=== PATIENT | male | born 1990 | race Caucasian/White ===

== ENCOUNTER 2020-01-28 09:29 | Emergency (ER) | payer OTHER, SELFPAY ==
[2020-01-28 09:44] VITALS: BP 123/84; PULSE 76; RESP 16; TEMP 36.6; O2SAT 97
--- NOTE | 2020-01-28 10:25 | ED.BACK ---
HPI - Back Pain/Injury General Chief Complaint: Back Pain/Injury Stated Complaint: lower back pain Time Seen by Provider: 01/28/20 10:09 Source: patient and RN notes reviewed Mode of arrival: ambulatory Limitations: no limitations History of Present Illness HPI Narrative: Patient presents today complaining of right mid back pain x4 days. Denies any injury, trauma, heavy lifting. States he was not doing anything when the pain began. Reports pain has been worsening since onset. Denies numbness or tingling in the extremities. Denies any loss of bowel or bladder control. He rates his pain 2/10 at rest, which increases with movement and lying flat. He has tried no medication or [id number] interventions prior to arrival. MD elicited complaint: back pain Related Data Allergies Allergy/AdvReac Type Severity Reaction Status Date / Time No Known Allergies Allergy Verified 01/28/20 10:03 Review of Systems Review of Systems: Narrative: CONSTITUTIONAL: Denies body aches, fever, chills, or sweats. EYES: Denies visual changes, redness, or discharge. ENT: Denies rhinorrhea, congestion, sore throat, or otalgia. CARDIOVASCULAR: Denies chest pain, palpitations, or edema. RESPIRATORY: Denies cough or dyspnea. GASTROINTESTINAL: Denies abdominal pain, nausea, vomiting, or diarrhea. GENITOURINARY: Denies frequency, urgency, dysuria or hematuria. SKIN: Denies rash, itching, or wounds. MUSCULOSKELETAL: Denies joint pain, or myalgia. + Right mid back pain NEUROLOGIC: Denies headache, numbness, tingling, or weakness. PSYCH: Denies depression or anxiety. PMFSH Social History Social History Gender identity (if verbalized by the patient): Male Comments At time of signature, I have reviewed and agree with nursing past medical, surgical, social and family history unless otherwise noted. Please see nursing chart for further information. There is no relevant family history pertinent to the presenting complaint Exam Narrative: Exam Narrative: GENERAL: Well-appearing, well-nourished, and in no acute distress. Able to move from lying to sitting position on exam table very easily without indication of pain. HEAD: Normocephalic, atraumatic. EYES: EOMI. No redness or drainage. Conjunctivae normal. ENT: Mucous membranes pink and moist. NECK: Normal AROM. Supple. No lymphadenopathy. CHEST: No respiratory distress. Clear to auscultation. HEART: Regular rate and rhythm. No murmur appreciated. Normal peripheral pulses. ABDOMEN: Soft, nontender, nondistended, normal active bowel sounds.-CVAT MUSCULOSKELETAL: No bony tenderness of the spine. No paraspinal muscle tenderness of the thoracic or lumbar spine. Patient localizes pain to the right lower thoracic paraspinal muscles. Distal sensation intact. Capillary refill normal. EXTREMITIES: Normal range of motion. No edema. Foot push and pulls equal and strong. SKIN: Warm, dry, no rash. Capillary refill normal. Normal skin turgor. NEURO: No focal deficits. Alert and oriented x3. Gait steady. PSYCH: Normal affect. No signs of depression or anxiety. Course Vital Signs Vital signs: Vital Signs Temperature 97.8 F 01/28/20 09:44 Pulse Rate 76 01/28/20 09:44 Respiratory Rate 16 01/28/20 09:44 Blood Pressure 123/84 01/28/20 09:44 Pulse Oximetry 97 01/28/20 09:44 Temperature 97.8 F 01/28/20 09:44 Pulse Rate 76 01/28/20 09:44 Respiratory Rate 16 01/28/20 09:44 Blood Pressure 123/84 01/28/20 09:44 Pulse Oximetry 97 01/28/20 09:44 Reviewed. Pt has been instructed to follow up with his PCP regarding his elevated blood pressure today. MDM - Back Pain/Injury Differential Diagnosis Differential diagnosis: Likely lumbar radiculopathy, sciatica, strain of lumbar region, pyelonephritis, thoracic back pain and other (Kidney stone) Lab Data Attestation: I reviewed the patient's lab results. Labs: Urine Glucose Negative Reference Range: Negative
== END 2020-01-28 10:34 | disposition home or self-care (01) ==
PROVIDERS: Emergency Provider Nurse Practitioner
DX: S29.012A Strain of muscle and tendon of back wall of thorax, initial encounter (principal); X58.XXXA Exposure to other specified factors, initial encounter
CPT/HCPCS: 81003; 99213; G0463

== ENCOUNTER 2020-05-30 14:16 | Emergency (ER) | payer OTHER, SELFPAY ==
[2020-05-30 14:30] VITALS: BP 118/82; PULSE 86; RESP 16; TEMP 36.1; O2SAT 98
[2020-05-30 14:34] VITALS: BP 118/82; PULSE 86; RESP 16; TEMP 36.1; O2SAT 98
--- NOTE | 2020-05-30 14:41 | ED.URI ---
HPI - URI/Sore Throat General Chief Complaint: Upper Respiratory Infection Stated Complaint: possible sinus infection Time Seen by Provider: 05/30/20 14:41 Source: patient and RN notes reviewed Mode of arrival: ambulatory Limitations: no limitations History of Present Illness HPI Narrative: 29 year old male who presents to [facility] with complaints of 1.5 weeks of sinus congestion, headaches, sinus pressure and occasional cough. Patient states that he has had copious amounts of green nasal drainage and has been expectorating some greenish drainage also. He states that he was tested for COVID on the 25 of May with negative results. Patient states that he has been taking Mucinex for his symptoms. He reports that he did have a sore throat initially but that has resolved, denies any shortness of breath or any wheezing Patient states that he has had intermittent low grade temperatures. MD elicited complaint: rhinorrhea, nasal congestion and sinus pain Pertinent past history: asthma (as child) Onset (ago): week(s) (1.5 weeks) Consistency: progressively worsening Severity: moderate Pain scale (0-10): 5 Description of mucous: green Able to tolerate fluids by mouth: Yes Exacerbating factors: changing head position Relieving factors: nothing Associated symptoms: fever, headache, rhinorrhea, nasal congestion and sore throat Treatments prior to arrival: other (mucinex) Related Data Home Medications Medication Instructions Recorded Confirmed Adderall 05/30/20 05/30/20 Allergies Allergy/AdvReac Type Severity Reaction Status Date / Time Sulfa (Sulfonamide Allergy Unknown Verified 05/30/20 15:00 Antibiotics) Review of Systems Review of Systems: Narrative: CONSTITUTIONAL: reports low grade fever, chills, or sweats. EYES: Denies visual changes, redness, or discharge. ENT: Positive rhinorrhea, congestion,resolved sore throat, no otalgia. CARDIOVASCULAR: Denies chest pain, palpitations, or edema. RESPIRATORY:Positive cough no dyspnea. GASTROINTESTINAL: Denies abdominal pain, nausea, vomiting, or diarrhea. GENITOURINARY: Denies dysuria or hematuria. SKIN: Denies rash or itching. MUSCULOSKELETAL: Denies back pain, joint pain, or myalgia. NEUROLOGIC: positive headache, no numbness, or weakness. PSYCHIATRIC: Denies anxiety or depression. All systems reviewed & are unremarkable except as noted in HPI and below [facility] Past Medical History Medical History (Updated 06/01/20 @ 11:34 by Charito Narayna NP) ADD (attention deficit disorder) Asthma as a child Fracture of right hand Fracture, clavicle Social History Social History (Updated 05/30/20 @ 15:10 by Charito Narayan NP) Smoking status: Never smoker Alcohol intake: current Substance use: never Living arrangements: with family Gender identity (if verbalized by the patient): Male Comments At time of signature, agree with nursing past medical, surgical, social and family history. There is no relevant family history pertinent to the presenting complaint Exam Narrative: Exam Narrative: GENERAL: ill-appearing, well-nourished, and in no acute distress. HEAD: Normocephalic, atraumatic. EYES: PERRLA and EOMI. ENT: Nares red with swollen turbinates, green rhinorrhea no epistaxis, frontal headache and facial pain across maxillary sinus region. Mucous membranes moist.TM's normal with dull light reflex, throat red with no lesions or exudates, tonsils enlarged, large amounts of post nasal drainage. NECK: Supple.no lymphadenopathy CHEST: Clear to auscultation. No respiratory distress.SAO2 98% on room air HEART: Regular rate and rhythm. No murmur heard. Normal peripheral pulses. ABDOMEN: Soft, nontender, nondistended, normal active bowel sounds. EXTREMITIES: Normal range of motion. No edema. SKIN: Warm, dry, no rash. NEURO: No focal deficits. Alert and oriented x3. Course Vital Signs Vital signs: Vital Signs Temperature 36.1 C L 05/30/20 14:30 Pulse Rate
== END 2020-05-30 15:04 | disposition home or self-care (01) ==
PROVIDERS: Emergency Provider Registered Nurse
DX: J32.9 Chronic sinusitis, unspecified (principal); F98.8 Other specified behavioral and emotional disorders with onset usually occurring in childhood and adolescence
CPT/HCPCS: 99213; G0463

== ENCOUNTER 2021-05-15 14:29 | Emergency (ER) | payer OTHER, SELFPAY ==
[2021-05-15 14:43] VITALS: BP 123/76; PULSE 86; RESP 18; TEMP 37.6; O2SAT 98
--- NOTE | 2021-05-15 15:05 | ED.URI ---
HPI - URI/Sore Throat General Chief Complaint: Upper Respiratory Infection Stated Complaint: cough Source: patient and RN notes reviewed Limitations: no limitations History of Present Illness HPI Narrative: The vaccinated patient, a non-smoker/nondrinker, presents with cough. Patient states he has a 2-week history of slightly productive green cough. No fever, loss of taste/smell, sore throat, S OB, earache, sneezing/wheeze-and to use inhaler as a youth [which will be refilled]. Symptoms are mild to moderate and persistent, associated with occasional postnasal drip, and in the last week he had a negative Covid testing. Related Data Allergies Allergy/AdvReac Type Severity Reaction Status Date / Time Sulfa (Sulfonamide Allergy Unknown Verified 05/30/20 15:00 Antibiotics) Review of Systems Review of Systems: General/Constitutional: No weight loss,fever Eyes: N0: Redness,discharge Ears/Nose/Throat: No: Epistaxis,ear discharge Respiratory: Denies: Hemoptysis Gastrointestinal: No Vomiting, Bleeding-rectal Skin: No Lumps, eruption Neurologic: No Focal Weakness,Sz Hematologic: Denies: Petechiae/Purpura Psychiatric: No: Suicida ideationl All Other Systems: Reviewed and Negative PMFSH Past Medical History Medical History (Updated 05/15/21 @ 15:12 by Manpreet Mahajan MD) ADD (attention deficit disorder) Asthma as a child Fracture of right hand Fracture, clavicle Social History Social History (Updated 05/30/20 @ 15:10 by Charito Narayan NP) Smoking status: Never smoker Alcohol intake: current Substance use: never Gender identity (if verbalized by the patient): Male Comments At time of signature, agree with nursing past medical, surgical, social and family history. There is no relevant family history pertinent to the presenting complaint Exam Narrative: General Appearance: Well appearing, Well nourished EYE: PERRLA, Conjunctiva clear Ears: Auditory canal normal, TM normal Nose: Rhinorrhea, Mucousal erythema Mouth/Throat: MM moist, Uvula midline, Pharyngeal erythema Neck: Supple, No adenopathy Respiratory: No respiratory distress, Breath sounds equal, Clear to auscultation Cardiovascular: RRR, No JVD Musculoskeletal: Non tender, Normal strength Skin: Warm, Dry Neurological: A&O x3, CN II-XII intact Psychiatric: Normal mood, Normal affect Course Vital Signs Vital signs: Vital Signs Temperature 99.7 F H 05/15/21 14:43 Pulse Rate 86 05/15/21 14:43 Respiratory Rate 18 05/15/21 14:43 Blood Pressure 123/76 05/15/21 14:43 Pulse Oximetry 98 05/15/21 14:43 Temperature 99.7 F H 05/15/21 14:43 Pulse Rate 86 05/15/21 14:43 Respiratory Rate 18 05/15/21 14:43 Blood Pressure 123/76 05/15/21 14:43 Pulse Oximetry 98 05/15/21 14:43 MDM - URI/Sore Throat Lab Data Labs: Lab Results 05/15/21 Range/Units 15:03 POC SARS CoV-2 Ag Negative (Negative) Discharge Plan Discharge Clinical Impression: Bronchitis Patient Disposition: Home, Self-Care Condition: Stable Instructions: Chronic Cough (ED) Additional Instructions: You may also try OTC preparations for symptoms like Flonase, Claritin You may also try Pepcid for heartburn or upset stomach especially from medications Prescriptions: New benzonatate 100 mg capsule 100 mg PO TID PRN (Reason: cough) Qty: 20 RF: 2 codeine-guaifenesin 10-100 mg/5 mL liquid 7.5 ml PO Q6H PRN (Reason: cough) Qty: 118 RF: 0 albuterol sulfate [Ventolin HFA] 90 mcg/actuation HFA aerosol inhaler 2 puff INHALATION QID PRN (Reason: shortness of breath or wheezing) Qty: 8.5 RF: 1 prednisone 20 mg tablet 60 mg PO DAILY Qty: 9 RF: 0 azithromycin 250 mg tablet See Rx Instructions .ROUTE .COMPLEX Qty: 6 RF: 0 Follow-up/Referrals: UNKNOWN,DOCTOR [Primary Care Provider] -
== END 2021-05-15 15:20 | disposition home or self-care (01) ==
PROVIDERS: Emergency Provider Emergency Medicine
DX: J40 Bronchitis, not specified as acute or chronic (principal); Z20.822 Contact with and (suspected) exposure to COVID-19; J45.909 Unspecified asthma, uncomplicated
CPT/HCPCS: 87426; 99213; C9803; G0463

== ENCOUNTER 2021-06-30 09:31 | Emergency (ER) | payer OTHER, SELFPAY ==
[2021-06-30 09:39] VITALS: BP 109/63; PULSE 91; RESP 16; TEMP 36.3; O2SAT 99
--- NOTE | 2021-06-30 09:39 | ED.URI ---
HPI - URI/Sore Throat General Chief Complaint: Upper Respiratory Infection Stated Complaint: cough/fever Time Seen by Provider: 06/30/21 09:39 Source: patient, RN notes reviewed and old records reviewed Mode of arrival: ambulatory Limitations: no limitations History of Present Illness HPI Narrative: 30-year-old male presents to the [facility] with complaints of cough, fever, sore throat and body aches since last night. Reports one hundred and three fever yesterday. Has taken ibuprofen and leftover cough syrup with minimal relief. No other treatment prior to arrival. Patient states that he is Covid vaccinated, not vaccinated for the flu MD elicited complaint: fever and cough Related Data Allergies Allergy/AdvReac Type Severity Reaction Status Date / Time Sulfa (Sulfonamide Allergy Unknown Verified 06/30/21 10:06 Antibiotics) Review of Systems Review of Systems: All systems reviewed & are unremarkable except as noted in HPI and below Constitutional: Constitutional: Reports as per HPI, Reports chills and Reports fever(s) Eyes: Eyes: Reports no additional eye complaints ENT: Reports as per HPI and Reports nasal congestion Cardiovascular: Cardiovascular: Reports no additional cardiovascular complaints and Denies chest pain Respiratory: Respiratory: Reports as per HPI, Denies chest congestion, Reports cough, Denies dyspnea and Denies wheezing Gastrointestinal: Gastrointestinal: Reports no additional gastrointestinal complaints, Denies abdominal pain, Denies diarrhea, Denies nausea and Denies vomiting Musculoskeletal: Musculoskeletal: Reports no additional musculoskeletal complaints Integumentary/Breasts: Skin/Breast: Reports system reviewed and no additional complaints, except as docu Neurologic: Reports system reviewed and no additional complaints, except as documented, Denies dizziness, Denies headache(s) and Denies weakness Psychiatric: Psychiatric: Reports no additional psychiatric complaints Allergic/Immunologic: Allergic/Immunologic: Reports no additional allergic/immunologic complaints [facility] Past Medical History Medical History ADD (attention deficit disorder) Asthma as a child Fracture of right hand Fracture, clavicle Social History Social History Smoking status: Never smoker Alcohol intake: current Substance use: never Gender identity (if verbalized by the patient): Male Comments At the time of my signature, I reviewed and agree with the nursing past medical, surgical, social, and family history. There is no relevant family history pertinent to the patient complaint. Exam Const: General: healthy appearing, no acute distress and alert Nutritional Appearance: well nourished Orientation/consciousness: patient oriented x3 Limitations: no limitations HENMT: Head: normal to inspection Ears: external ears normal, TM's normal bilaterally and EAC's normal General nose exam: Normal external nose present, Normal nasal mucous membranes and turbinates present and Nasal discharge present clear Face and sinus: normal facial exam Mouth: Yes Normal oral and palatal mucosa present Throat: tonsils normal, uvula midline, postnasal drainage and no uvular edema Eyes: Pupils: Equal, round and reactive pupils present Neck: Neck: normal visual inspection, no lymphadenopathy and no meningeal signs Chest: Chest palpation & inspection: normal inspection of the chest Resp: Effort & Inspection: normal respiratory effort and no use of accessory muscles Auscultation: clear to auscultation bilaterally, no crackles, no rales, no rhonchi and no wheezes Cardio: Rate: regular rate Rhythm: regular rhythm GI: GI Palp: Yes Soft to palpation and No Tenderness to palpation present (GI) Back/Spine/Pelvis: Back: no CVA tenderness Skin: General skin exam: normal color Rashes: no rashes Wounds: no wounds Neuro: General:
== END 2021-06-30 10:20 | disposition home or self-care (01) ==
PROVIDERS: Emergency Provider Nurse Practitioner
DX: J06.9 Acute upper respiratory infection, unspecified (principal); Z20.822 Contact with and (suspected) exposure to COVID-19
CPT/HCPCS: 87804; 99213; G0463

== ENCOUNTER 2022-06-02 17:28 | Emergency (ER) | payer OTHER, SELFPAY ==
[2022-06-02 17:37] VITALS: BP 137/97; PULSE 72; RESP 16; TEMP 35.9; O2SAT 99
--- NOTE | 2022-06-02 18:57 | ED.URI ---
HPI - URI/Sore Throat General Chief Complaint: Upper Respiratory Infection Stated Complaint: uri Time Seen by Provider: 06/02/22 18:50 Source: patient, RN notes reviewed and old records reviewed Mode of arrival: ambulatory Limitations: no limitations History of Present Illness HPI Narrative: 31-YEAR-OLD MALE WHO PRESENTS TO [facility] CARE WITH 2 WEEKS CONGESTION RUNNY NOSE, PRESSURE SENSATION EARS. COVID test taken YESTERDAY was negative,s HE HAS BEEN COVID VACCINATED NO FLU shot. He reports that he has had a SORE THROAT THE PAST 5 DAYS RIGHT GREATER THAN LEFT. He has been taking NyQuil for his symptoms. MD elicited complaint: cough and sore throat Onset (ago): week(s) (2.5 WEEKS) Pain scale (0-10): 4 Treatments prior to arrival: other (NyQuil) Related Data Home Medications Medication Instructions Recorded Confirmed dextroamphetamine-amphetamine 20 20 mg DAILY 06/02/22 06/02/22 mg tablet Allergies Allergy/AdvReac Type Severity Reaction Status Date / Time Sulfa (Sulfonamide Allergy Unknown Verified 06/02/22 18:16 Antibiotics) Review of Systems Review of Systems: CONSTITUTIONAL: Denies malaise, chills, sweats, or fever. EYES: Denies visual changes, redness, or discharge. ENT: Reports rhinorrhea, congestion, sinus pain, otalgia and sore throat. CARDIOVASCULAR: Denies chest pain, palpitations, or edema. RESPIRATORY: Reports cough.? Denies dyspnea. GASTROINTESTINAL: Denies abdominal pain, nausea, vomiting, diarrhea SKIN: Denies rash or itching. MUSCULOSKELETAL: Denies myalgia. NEUROLOGIC: Denies headache. All systems reviewed & are unremarkable except as noted in HPI and below PMFSH Past Medical History Medical History (Updated 06/06/22 @ 22:59 by Charito Narayan NP) ADD (attention deficit disorder) Asthma as a child Fracture of right hand Fracture, clavicle MAXWELL on CPAP Social History Social History Smoking status: Never smoker Alcohol intake: current Substance use: never Gender identity (if verbalized by the patient): Male Comments At time of signature, agree with nursing past medical, surgical, social and family history. There is no relevant family history pertinent to the presenting complaint Exam Narrative: GENERAL: Well-appearing, well-nourished, and in no acute distress. HEAD: Normocephalic EYES: PERRLA, conjunctivae clear ENT: Nares clear, turbinates edematous and erythematous, clear to light yellow discharge. Mucous membranes moist. TM pearly chavez with dull light reflex bilaterally; no tragal tenderness. Oropharynx erythematous without lesions. Tonsils not enlarged and without exudate, no drooling, no hoarseness, no trismus, uvula midline.post nasal drainage NECK: Supple. No lymphadenopathy CHEST: Clear to auscultation, breath sounds equal. No wheezing, rhonchi, rales, or stridor. No respiratory distress, speaks in full sentences.cough noted SAO2 99% on room air HEART: Regular rate and rhythm. No murmur heard. SKIN: Warm, dry, no rash. NEURO: Alert and oriented x3. PSYCH: Normal mood and affect Course Course Emergency Course: Patient is aware of diagnosis, understands and agrees to treatment plan.? Anticipatory guidance given.? Patient agrees to follow-up as directed and is aware of reasons to seek care at the emergency department. Portions of this record may have been created with voice recognition software Level of Care: Express Care Visit Vital Signs Vital signs: Vital Signs Temperature 35.9 C L 06/02/22 17:37 Pulse Rate 72 06/02/22 17:37 Respiratory Rate 16 06/02/22 17:37 Blood Pressure 137/97 H 06/02/22 17:37 Pulse Oximetry 99 06/02/22 17:37 Oxygen Delivery Room Air 06/02/22 17:37 Temperature 35.9 C L 06/02/22 17:37 Pulse Rate 72 06/02/22 17:37 Respiratory Rate 16 06/02/22 17:37 Blood Pressure 137/97 H 06/02/22 17:37 Pulse Oximetry 99 11
== END 2022-06-02 19:08 | disposition home or self-care (01) ==
PROVIDERS: Emergency Provider Registered Nurse
DX: J32.9 Chronic sinusitis, unspecified (principal); F98.8 Other specified behavioral and emotional disorders with onset usually occurring in childhood and adolescence; G47.33 Obstructive sleep apnea (adult) (pediatric)
CPT/HCPCS: 99213; G0463